=== PATIENT | male | born 1975 | race Caucasian/White ===

== ENCOUNTER 2018-02-07 04:07 | Emergency (ER) | payer OTHER ==
[~2018-02-07] VITALS: Ht 177.8 cm; Wt 140.0 kg
[~2018-02-07 04:07] MED LIST: DOXY100T17 OR
[2018-02-07 04:14] VITALS: BP 122/74; PULSE 98; RESP 16; TEMP 98.4; O2SAT 93
[2018-02-07] MEDS ORDERED: SODIUM CHLOR 0.9% 1000 ML INJ 1,000 ML IV ONE ×2 (04:30)
[2018-02-07] MEDS ORDERED: ONDANSETRON HCL 4 MG/2 ML VIAL IV PUSH ONE (04:30)
[2018-02-07] MEDS ORDERED: SODIUM CHLORIDE 0.9% FLUSH 10 ML FLUSH IVF PRN (04:30)
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
== END 2018-02-07 08:31 | disposition home or self-care (01) ==
LOC: NEPD 04:07
DX: F10.929 Alcohol use, unspecified with intoxication, unspecified (principal); Y90.8 Blood alcohol level of 240 mg/100 ml or more
CPT/HCPCS: 80307; 96361; 96374; 99284; J2405; J7030